=== PATIENT | female | born 1970 | race Two or more races ===

== ENCOUNTER 2021-02-16 23:46 | Emergency (ER) | payer MEDICAID, OTHER ==
[~2021-02-16] VITALS: Ht 162.6 cm; Wt 74.8 kg
[2021-02-16 23:51] VITALS: BP 154/85
== END 2021-02-17 03:51 | disposition home or self-care (01) ==
LOC: ER 23:46
DX: S33.5XXA Sprain of ligaments of lumbar spine, initial encounter (principal); M62.838 Other muscle spasm; M25.511 Pain in right shoulder; V49.9XXA Car occupant (driver) (passenger) injured in unspecified traffic accident, initial encounter; Y93.89 Activity, other specified; Y92.89 Other specified places as the place of occurrence of the external cause; Y99.8 Other external cause status
CPT/HCPCS: 72040; 72100; 73030